=== PATIENT | male | born 1975 | race Caucasian/White ===

== ENCOUNTER 2017-09-26 15:59 | Emergency (ER) | payer MEDICAID ==
[~2017-09-26] VITALS: Ht 165.1 cm; Wt 73.0 kg
[2017-09-26] MEDS ORDERED: SODIUM CHLORIDE 0.9% 1,000 ML IV ONE (17:01)
[2017-09-26 17:26] LABS: BASOPHILS % 2.4 % (0.0-2.0); EOSINOPHILS % 3.8 % (0.0-5.0); HEMATOCRIT. 36.3 % (42.0-52.0); LYMPHOCYTES % 32.4 % (20.0-50.0); MEAN CORPUSCULAR HEMOGLOBIN 36.4 pg (28.0-32.0); MEAN CORPUSCULAR VOLUME 101.9 fL (80.0-94.0); MEAN PLATELET VOLUME 6.5 fl (7.4-10.4); MONOCYTES % 7.5 % (2.0-8.0); NEUTROPHILS % 53.9 % (40.0-76.0); PLATELET 149 x1000/uL (130-400); RED BLOOD CELL COUNT 3.56 mill/uL (4.7-6.1); RED CELL DISTRIBUTION WIDTH 14.4 % (11.6-14.6)
[2017-09-26] MEDS ORDERED: ONDANSETRON HCL 4MG/2ML VIAL IV ONE (17:30)
[2017-09-26 17:31] LABS: CHLORIDE 108 mEq/L (98-107); INR 1.1
[2017-09-26 17:52] LABS: ETHANOL BLOOD 289 mg/dL
[2017-09-26 18:08] VITALS: BP 125/84
[2017-09-26 18:43] LABS: CLARITY URINE CLEAR (CLEAR); COLOR URINE YELLOW (YELLOW); KETONES URINE TRACE (NEGATIVE); LEUKOCYTE ESTERASE URINE NEGATIVE (NEGATIVE); NITRITE URINE NEGATIVE (NEGATIVE); OCCULT BLOOD URINE NEGATIVE (NEGATIVE); PROTEIN URINE NEGATIVE (NEGATIVE); SPECIFIC GRAVITY URINE 1.016 (1.005-1.030)
== END 2017-09-26 18:32 | disposition left against medical advice (07) ==
LOC: ER 16:18
DX: F10.229 Alcohol dependence with intoxication, unspecified (principal); Y90.8 Blood alcohol level of 240 mg/100 ml or more; G92 Toxic encephalopathy; R10.9 Unspecified abdominal pain; D64.9 Anemia, unspecified; I10 Essential (primary) hypertension; E11.9 Type 2 diabetes mellitus without complications; F12.90 Cannabis use, unspecified, uncomplicated; Z85.028 Personal history of other malignant neoplasm of stomach; Z86.59 Personal history of other mental and behavioral disorders; Z87.891 Personal history of nicotine dependence
CPT/HCPCS: 36415; 80053; 81003; 83690; 85025; 85610; 96361; 96374; 99284; G0482; J2405; J7030

== ENCOUNTER 2018-11-22 22:53 | Inpatient (IN) | payer MEDICAID ==
[~2018-11-22] VITALS: Ht 172.7 cm; Wt 78.5 kg
[2018-11-23] MEDS ORDERED: SODIUM CHLORIDE 0.9% 1,000 ML IV ONE ×2 (01:39→15:05)
[2018-11-23 02:00] LABS: BASOPHILS % 0.6 % (0.0-2.0); EOSINOPHILS % 1.6 % (0.0-5.0); HEMATOCRIT. 32.1 % (42.0-52.0); HEMOGLOBIN. 10.8 g/dL (14.0-18.0); LYMPHOCYTES % 15.9 % (20.0-50.0); MEAN CORPUSCULAR HEMOGLOBIN 34.1 pg (28.0-32.0); MEAN CORPUSCULAR VOLUME 101.1 fL (80.0-94.0); MEAN PLATELET VOLUME 6.5 fl (7.4-10.4); MONOCYTES % 6.9 % (2.0-8.0); PLATELET 199 x1000/uL (130-400); RED BLOOD CELL COUNT 3.18 mill/uL (4.7-6.1); RED CELL DISTRIBUTION WIDTH 15.1 % (11.6-14.6)
[2018-11-23 02:02] LABS: CLARITY URINE CLEAR (CLEAR); COLOR URINE YELLOW (YELLOW); KETONES URINE NEGATIVE (NEGATIVE); LEUKOCYTE ESTERASE URINE NEGATIVE (NEGATIVE); NITRITE URINE NEGATIVE (NEGATIVE); OCCULT BLOOD URINE NEGATIVE (NEGATIVE); PROTEIN URINE NEGATIVE (NEGATIVE); SPECIFIC GRAVITY URINE 1.015 (1.005-1.030)
[2018-11-23 02:08] LABS: CHLORIDE 106 mEq/L (98-107)
[2018-11-23 02:12] LABS: ETHANOL BLOOD 255 mg/dL
[2018-11-23 02:15] LABS: *AMPHETAMINES SCREEN URINE NEGATIVE (NEGATIVE); *BARBITURATES SCREEN URINE NEGATIVE (NEGATIVE); *BENZODIAZEPINES SCREEN URINE NEGATIVE (NEGATIVE); *COCAINE SCREEN URINE NEGATIVE (NEGATIVE); CANNABINOID URINE SCREEN NEGATIVE (NEGATIVE); PHENCYCLIDINE URINE SCREEN NEGATIVE (NEGATIVE)
[2018-11-23 02:16] LABS: METHADONE URINE SCREEN NEGATIVE (NEGATIVE); OPIATES URINE SCREEN NEGATIVE (NEGATIVE)
[2018-11-23] MEDS ORDERED: LORAZEPAM 2MG/ML CPJ IV ONE (15:15)
[2018-11-23] MEDS ORDERED: LEVETIRACETAM 1000MG/100ML 100 ML IV ONE (15:15)
[2018-11-23 15:58] LABS: CHLORIDE 101 mEq/L (98-107)
[2018-11-23 16:01] LABS: ETHANOL BLOOD < 10 mg/dL
[2018-11-23 16:04] LABS: HEMATOCRIT. 40.6 % (42.0-52.0); HEMOGLOBIN. 13.8 g/dL (14.0-18.0); MEAN CORPUSCULAR HEMOGLOBIN 34.4 pg (28.0-32.0); MEAN CORPUSCULAR VOLUME 101.8 fL (80.0-94.0); MEAN PLATELET VOLUME 8.1 fl (7.4-10.4); PLATELET 100 x1000/uL (130-400); RED BLOOD CELL COUNT 3.99 mill/uL (4.7-6.1)
[2018-11-23 16:06] LABS: CREATINE KINASE 205 IU/L (39-308)
[2018-11-23] MEDS ORDERED: CHLORDIAZEPOXIDE 25MG CAPSULE PO ONE (17:00)
[2018-11-23] MEDS ORDERED: LEVETIRACETAM 500MG PREMIX 100 ML IV ONE (17:00)
[2018-11-23 19:25] LABS: PLATELET ESTIMATE DECREASED
[2018-11-24] MEDS ORDERED: LORAZEPAM 2MG/ML CPJ IV ONE (08:45)
[2018-11-24 09:48] VITALS: BP 143/98
[2018-11-24 10:42] VITALS: BP 143/98
[2018-11-24] MEDS ORDERED: LORAZEPAM 2MG/ML CPJ IV PRN (10:45)
[2018-11-24] MEDS ORDERED: ONDANSETRON HCL 4MG/2ML INJ IV PRN (10:45)
[2018-11-24] MEDS ORDERED: DEXTROSE 50% WATER 50ML SYRINGE IV PRN (11:00)
[2018-11-24] MEDS: DEXT 5%/0.45% NACL 1000ML 1,000 ML IV SCH (11:56)
[2018-11-24 12:00] VITALS: BP 143/96
[2018-11-24] MEDS: MULTIVITAMINS,THER W-MINERALS TABLET PO SCH (12:04)
[2018-11-24] MEDS: THIAMINE HCL 100MG TABLET PO SCH (12:04)
[2018-11-24] MEDS: ACETAMINOPHEN 325MG TABLET PO PRN (12:05)
[2018-11-24] MEDS: FAMOTIDINE 20MG/2ML VIAL IV SCH (12:05)
[2018-11-24] MEDS: BLOOD SUGAR DIAGNOSTIC STRIP TEST SCH ×3 (12:28→21:00)
[2018-11-24] MEDS: INSULIN LISPRO 100 UNITS/ML SUBCUT SCH ×3 (12:28→21:00)
[2018-11-24] MEDS: CHLORDIAZEPOXIDE 25MG CAPSULE PO SCH ×2 (14:50→21:24)
[2018-11-24 16:00] VITALS: BP 139/78
[2018-11-24 20:00] VITALS: BP 149/108
[2018-11-25] VITALS: BP 137/103
[2018-11-25 04:00] VITALS: BP 148/105
[2018-11-25 06:45] LABS: BASOPHILS % 0.4 % (0.0-2.0); EOSINOPHILS % 4.1 % (0.0-5.0); HEMATOCRIT. 34.2 % (42.0-52.0); HEMOGLOBIN. 11.9 g/dL (14.0-18.0); LYMPHOCYTES % 17.7 % (20.0-50.0); MEAN CORPUSCULAR HEMOGLOBIN 34.3 pg (28.0-32.0); MEAN CORPUSCULAR VOLUME 98.7 fL (80.0-94.0); MEAN PLATELET VOLUME 7.3 fl (7.4-10.4); MONOCYTES % 8.8 % (2.0-8.0); PLATELET 149 x1000/uL (130-400); RED BLOOD CELL COUNT 3.46 mill/uL (4.7-6.1); RED CELL DISTRIBUTION WIDTH 14.3 % (11.6-14.6)
[2018-11-25] MEDS: CHLORDIAZEPOXIDE 25MG CAPSULE PO SCH ×3 (06:59→21:10)
[2018-11-25 07:07] LABS: CHLORIDE 104 mEq/L (98-107)
[2018-11-25] MEDS: BLOOD SUGAR DIAGNOSTIC STRIP TEST SCH ×4 (07:13→20:31)
[2018-11-25] MEDS: INSULIN LISPRO 100 UNITS/ML SUBCUT SCH ×4 (07:14→20:32)
[2018-11-25 08:00] VITALS: BP 154/104
[2018-11-25] MEDS ORDERED: CLONIDINE 0.1MG TABLET PO PRN (08:00)
[2018-11-25] MEDS ORDERED: POTASSIUM CHLORIDE 20MEQ TABLET SR PO NR (08:00)
[2018-11-25] MEDS: FOLIC ACID 1MG TABLET PO SCH (08:53)
[2018-11-25] MEDS: MULTIVITAMINS,THER W-MINERALS TABLET PO SCH (08:53)
[2018-11-25] MEDS: THIAMINE HCL 100MG TABLET PO SCH (08:53)
[2018-11-25] MEDS: FAMOTIDINE 20MG/2ML VIAL IV SCH (08:54)
[2018-11-25] MEDS: DEXT 5%/0.45% NACL 1000ML 1,000 ML IV SCH ×2 (09:12→23:11)
[2018-11-25 12:00] VITALS: BP 134/93
[2018-11-25] MEDS: ACETAMINOPHEN 325MG TABLET PO PRN (15:05)
[2018-11-25 16:00] VITALS: BP 115/86
[2018-11-25 20:00] VITALS: BP 138/93
[2018-11-25] MEDS: TRAMADOL 50MG TABLET PO PRN (20:42)
[2018-11-26] VITALS: BP 129/94
[2018-11-26] MEDS: TRAMADOL 50MG TABLET PO PRN ×2 (03:54→21:23)
[2018-11-26 04:00] VITALS: BP 148/99
[2018-11-26] MEDS: CHLORDIAZEPOXIDE 25MG CAPSULE PO SCH ×3 (05:09→21:24)
[2018-11-26] MEDS: BLOOD SUGAR DIAGNOSTIC STRIP TEST SCH ×4 (06:22→21:49)
[2018-11-26] MEDS: INSULIN LISPRO 100 UNITS/ML SUBCUT SCH ×4 (06:23→21:00)
[2018-11-26 08:00] VITALS: BP 147/102
[2018-11-26] MEDS: THIAMINE HCL 100MG TABLET PO SCH (08:06)
[2018-11-26] MEDS: MULTIVITAMINS,THER W-MINERALS TABLET PO SCH (08:06)
[2018-11-26] MEDS: FOLIC ACID 1MG TABLET PO SCH (08:06)
[2018-11-26] MEDS: FAMOTIDINE 20MG/2ML VIAL IV SCH (08:07)
[2018-11-26] MEDS: ACETAMINOPHEN 325MG TABLET PO PRN (08:07)
[2018-11-26 12:00] VITALS: BP 140/96
[2018-11-26 16:00] VITALS: BP 154/98
[2018-11-26] MEDS: DEXT 5%/0.45% NACL 1000ML 1,000 ML IV SCH (16:17)
[2018-11-26 20:00] VITALS: BP 138/91
[2018-11-27] VITALS: BP 141/90
[2018-11-27 04:00] VITALS: BP 145/96
[2018-11-27] MEDS: CHLORDIAZEPOXIDE 25MG CAPSULE PO SCH ×3 (06:33→21:47)
[2018-11-27] MEDS: BLOOD SUGAR DIAGNOSTIC STRIP TEST SCH ×4 (06:36→21:53)
[2018-11-27] MEDS: DEXT 5%/0.45% NACL 1000ML 1,000 ML IV SCH ×2 (06:51→17:50)
[2018-11-27] MEDS: INSULIN LISPRO 100 UNITS/ML SUBCUT SCH ×4 (07:50→21:00)
[2018-11-27] MEDS: FOLIC ACID 1MG TABLET PO SCH (08:50)
[2018-11-27] MEDS: MULTIVITAMINS,THER W-MINERALS TABLET PO SCH (08:50)
[2018-11-27] MEDS: FAMOTIDINE 20MG/2ML VIAL IV SCH (08:50)
[2018-11-27] MEDS: THIAMINE HCL 100MG TABLET PO SCH (08:50)
[2018-11-27] MEDS: ACETAMINOPHEN 325MG TABLET PO PRN ×2 (08:51→14:21)
[2018-11-27 11:43] VITALS: BP 135/84
[2018-11-27 16:00] VITALS: BP 118/77
[2018-11-27 19:53] VITALS: BP 144/99
[2018-11-27] MEDS: TRAMADOL 50MG TABLET PO PRN (20:18)
[2018-11-28 00:04] VITALS: BP 134/98
[2018-11-28 04:00] VITALS: BP 139/92
[2018-11-28] MEDS: CHLORDIAZEPOXIDE 25MG CAPSULE PO SCH ×2 (06:37→14:27)
[2018-11-28] MEDS: BLOOD SUGAR DIAGNOSTIC STRIP TEST SCH ×3 (06:39→17:28)
[2018-11-28] MEDS: INSULIN LISPRO 100 UNITS/ML SUBCUT SCH ×2 (07:06→12:30)
[2018-11-28 08:00] VITALS: BP 129/97
[2018-11-28] MEDS: FOLIC ACID 1MG TABLET PO SCH (08:57)
[2018-11-28] MEDS: FAMOTIDINE 20MG/2ML VIAL IV SCH (08:57)
[2018-11-28] MEDS: DEXT 5%/0.45% NACL 1000ML 1,000 ML IV SCH (08:57)
[2018-11-28] MEDS: MULTIVITAMINS,THER W-MINERALS TABLET PO SCH (08:57)
[2018-11-28] MEDS: THIAMINE HCL 100MG TABLET PO SCH (08:58)
[2018-11-28 12:00] VITALS: BP 128/88
[2018-11-28 15:52] VITALS: BP 130/88
[2018-11-28 16:35] VITALS: BP 130/88
[2018-11-28] MEDS: TRAMADOL 50MG TABLET PO PRN (16:35)
== END 2018-11-28 17:30 | disposition home or self-care (01) | DRG 775 ==
LOC: ER 22:53 → 6WST 11-23 17:01 → EDBEDREQ 11-23 17:14 → ENRESERV 11-24 06:55
PROVIDERS: ADMIT Hospitalist; ATTEND Hospitalist
DX: F10.129 Alcohol abuse with intoxication, unspecified (principal); R45.851 Suicidal ideations; E11.9 Type 2 diabetes mellitus without complications; I10 Essential (primary) hypertension; Y90.8 Blood alcohol level of 240 mg/100 ml or more
CPT/HCPCS: 36415; 73060; 82962; 96365; 96366; 96375; 97116; 97162; 97530; 99284; C1893; J1815; J1953; J2060; J3490; J7030

== ENCOUNTER 2019-01-25 16:03 | Emergency (ER) | payer MEDICAID ==
[~2019-01-25] VITALS: Ht 172.7 cm; Wt 75.0 kg
[2019-01-25 16:13] VITALS: BP 148/92
== END 2019-01-25 20:20 | disposition left against medical advice (07) ==
LOC: ER 16:03
DX: R10.9 Unspecified abdominal pain (principal); Z53.21 Procedure and treatment not carried out due to patient leaving prior to being seen by health care provider

== ENCOUNTER 2019-07-15 22:51 | Emergency (ER) | payer MEDICAID ==
[~2019-07-15] VITALS: Ht 167.6 cm; Wt 69.0 kg
[2019-07-15 22:53] VITALS: BP 150/90
== END 2019-07-16 01:48 | disposition left against medical advice (07) ==
LOC: ER 22:51
DX: R10.9 Unspecified abdominal pain (principal); Z53.21 Procedure and treatment not carried out due to patient leaving prior to being seen by health care provider

== ENCOUNTER 2019-07-16 02:10 | Emergency (ER) | payer MEDICAID ==
[~2019-07-16] VITALS: Ht 170.2 cm; Wt 75.0 kg
[2019-07-16] MEDS ORDERED: SODIUM CHLORIDE 0.9% 1,000 ML IV ONE (03:00)
[2019-07-16 03:40] LABS: CLARITY URINE CLEAR (CLEAR); COLOR URINE YELLOW (YELLOW); KETONES URINE NEGATIVE (NEGATIVE); LEUKOCYTE ESTERASE URINE NEGATIVE (NEGATIVE); NITRITE URINE NEGATIVE (NEGATIVE); OCCULT BLOOD URINE NEGATIVE (NEGATIVE); PROTEIN URINE 2+ (NEGATIVE); SPECIFIC GRAVITY URINE 1.021 (1.005-1.030); UROBILINOGEN URINE 0.2 E.U./dL (0.2-1.0)
[2019-07-16 03:53] LABS: *AMPHETAMINES SCREEN URINE NEGATIVE (NEGATIVE); *BARBITURATES SCREEN URINE NEGATIVE (NEGATIVE); *BENZODIAZEPINES SCREEN URINE PRESUMTIVE POSITIVE (NEGATIVE); *COCAINE SCREEN URINE NEGATIVE (NEGATIVE); METHADONE URINE SCREEN NEGATIVE (NEGATIVE); OPIATES URINE SCREEN NEGATIVE (NEGATIVE)
[2019-07-16 03:54] LABS: CANNABINOID URINE SCREEN NEGATIVE (NEGATIVE); PHENCYCLIDINE URINE SCREEN NEGATIVE (NEGATIVE)
[2019-07-16 04:37] LABS: BASOPHILS % 0.6 % (0.0-2.0); HEMATOCRIT. 37.7 % (42.0-52.0); HEMOGLOBIN. 12.7 g/dL (14.0-18.0); LYMPHOCYTES % 30.3 % (20.0-50.0); MEAN CORPUSCULAR HEMOGLOBIN 32.8 pg (28.0-32.0); MEAN CORPUSCULAR VOLUME 97.5 fL (80.0-94.0); MEAN PLATELET VOLUME 6.6 fl (7.4-10.4); MONOCYTES % 7.5 % (2.0-8.0); NEUTROPHILS % 58.6 % (40.0-76.0); PLATELET 109 x1000/uL (130-400); RED BLOOD CELL COUNT 3.87 mill/uL (4.7-6.1); RED CELL DISTRIBUTION WIDTH 16.9 % (11.6-14.6)
[2019-07-16 04:39] LABS: CHLORIDE 109 mEq/L (98-107)
[2019-07-16 04:43] LABS: ETHANOL BLOOD 259 mg/dL
[2019-07-16 11:30] VITALS: BP 117/84
== END 2019-07-16 11:58 | disposition home or self-care (01) ==
LOC: ER 02:10
DX: F10.129 Alcohol abuse with intoxication, unspecified (principal); Y90.0 Blood alcohol level of less than 20 mg/100 ml; S09.8XXA Other specified injuries of head, initial encounter; X58.XXXA Exposure to other specified factors, initial encounter; Y93.89 Activity, other specified; Y92.89 Other specified places as the place of occurrence of the external cause; Y99.8 Other external cause status; I10 Essential (primary) hypertension; F12.10 Cannabis abuse, uncomplicated
CPT/HCPCS: 36415; 70450; 80053; 80305; 80320; 81003; 83690; 85025; 85610; 99284; J7030; Z7610; G0480

== ENCOUNTER 2020-06-19 09:12 | Inpatient (IN) | payer MEDICAID ==
[~2020-06-19] VITALS: Ht 170.2 cm; Wt 71.2 kg
[2020-06-19] MEDS: CHLORDIAZEPOXIDE 25MG CAPSULE PO SCH
[2020-06-19] MEDS: METOPROLOL TARTRATE 50MG TABLET PO SCH
[2020-06-19] MEDS: LEVETIRACETAM 500MG TABLET PO SCH
[2020-06-19] MEDS ORDERED: LORAZEPAM 2MG/ML CPJ IM STA (09:19)
[2020-06-19 10:21] LABS: CHLORIDE 104 mEq/L (98-107)
[2020-06-19 10:22] LABS: HEMATOCRIT. 40.7 % (42.0-52.0); HEMOGLOBIN. 13.5 g/dL (14.0-18.0); MEAN CORPUSCULAR HEMOGLOBIN 32.7 pg (28.0-32.0); MEAN CORPUSCULAR VOLUME 98.6 fL (80.0-94.0); MEAN PLATELET VOLUME 7.3 fl (7.4-10.4); PLATELET 100 x1000/uL (130-400); RED BLOOD CELL COUNT 4.12 mill/uL (4.7-6.1); RED CELL DISTRIBUTION WIDTH 16.8 % (11.6-14.6)
[2020-06-19 10:25] LABS: ETHANOL BLOOD < 10 mg/dL
[2020-06-19 10:42] LABS: CARBAMAZEPINE < 0.5 ug/mL (4-12); PHENOBARBITAL < 2.1 ug/mL (15.0-40.0); VALPROIC ACID < 3.0 ug/mL (50-100)
[2020-06-19] MEDS ORDERED: LEVETIRACETAM 1000MG PREMIX 100 ML IV ONE (11:00)
[2020-06-19 11:32] LABS: CLARITY URINE CLEAR (CLEAR); COLOR URINE YELLOW (YELLOW); KETONES URINE TRACE (NEGATIVE); LEUKOCYTE ESTERASE URINE NEGATIVE (NEGATIVE); NITRITE URINE NEGATIVE (NEGATIVE); OCCULT BLOOD URINE 2+ (NEGATIVE); PH URINE 5.5 (4.5-8.0); PROTEIN URINE 2+ (NEGATIVE); SPECIFIC GRAVITY URINE 1.015 (1.005-1.030); UROBILINOGEN URINE 0.2 E.U./dL (0.2-1.0)
[2020-06-19 11:50] LABS: PLATELET ESTIMATE SLIGHTLY DECREASED
[2020-06-19 11:52] LABS: *BARBITURATES SCREEN URINE NEGATIVE (NEGATIVE); *BENZODIAZEPINES SCREEN URINE NEGATIVE (NEGATIVE); *COCAINE SCREEN URINE NEGATIVE (NEGATIVE)
[2020-06-19 11:53] LABS: *AMPHETAMINES SCREEN URINE NEGATIVE (NEGATIVE); CANNABINOID URINE SCREEN NEGATIVE (NEGATIVE); METHADONE URINE SCREEN NEGATIVE (NEGATIVE); OPIATES URINE SCREEN NEGATIVE (NEGATIVE); PHENCYCLIDINE URINE SCREEN NEGATIVE (NEGATIVE)
[2020-06-19] MEDS ORDERED: HYDRALAZINE 20MG/ML VIAL IV ONE (12:30)
[2020-06-19] MEDS ORDERED: LORAZEPAM 2MG/ML CPJ IV PRN (14:30)
[2020-06-19] MEDS ORDERED: ONDANSETRON HCL 4MG/2ML INJ IV PRN (14:45)
[2020-06-19] MEDS: CLONIDINE 0.1MG TABLET PO PRN ×2 (17:14→17:15)
[2020-06-19] MEDS ORDERED: FOLIC ACID 1 MG, THIAMINE HCL 100 MG, MVI, ADULT NO.1 10 ML in DEXTROSE 5% WATER 1,000 ML IV ONE ×4 (19:00)
[2020-06-19] MEDS: AMLODIPINE 10MG TABLET PO SCH (19:41)
[2020-06-20 06:49] LABS: BASOPHILS % 0.5 % (0.0-2.0); EOSINOPHILS % 2.6 % (0.0-5.0); HEMATOCRIT. 40.3 % (42.0-52.0); HEMOGLOBIN. 13.6 g/dL (14.0-18.0); LYMPHOCYTES % 11.5 % (20.0-50.0); MEAN CORPUSCULAR HEMOGLOBIN 32.4 pg (28.0-32.0); MEAN PLATELET VOLUME 7.3 fl (7.4-10.4); MONOCYTES % 8.3 % (2.0-8.0); NEUTROPHILS % 77.1 % (40.0-76.0); PLATELET 109 x1000/uL (130-400); RED BLOOD CELL COUNT 4.19 mill/uL (4.7-6.1); RED CELL DISTRIBUTION WIDTH 16.9 % (11.6-14.6)
[2020-06-20 06:52] LABS: CHLORIDE 102 mEq/L (98-107)
[2020-06-20] MEDS: METOPROLOL TARTRATE 50MG TABLET PO SCH ×2 (09:54→21:00)
[2020-06-20] MEDS: AMLODIPINE 10MG TABLET PO SCH (09:55)
[2020-06-20] MEDS: CHLORDIAZEPOXIDE 25MG CAPSULE PO SCH ×3 (09:55→21:35)
[2020-06-20] MEDS: LEVETIRACETAM 500MG TABLET PO SCH ×2 (09:56→21:35)
[2020-06-20] MEDS ORDERED: POTASSIUM CHLORIDE 20MEQ TABLET SR PO NR (10:00)
[2020-06-20] MEDS ORDERED: HALOPERIDOL LACTATE 5MG/ML VIAL IM SCH (23:15)
[2020-06-20] MEDS: LORAZEPAM 2MG/ML CPJ IV PRN (23:52)
[2020-06-21] MEDS: CHLORDIAZEPOXIDE 25MG CAPSULE PO SCH ×3 (06:00→21:16)
[2020-06-21 12:30] VITALS: BP_SYST 124; BP_SYST 152; BP_DIAS 90
[2020-06-21] MEDS: METOPROLOL TARTRATE 50MG TABLET PO SCH ×2 (13:25→20:37)
[2020-06-21] MEDS: LEVETIRACETAM 500MG TABLET PO SCH ×2 (13:26→20:37)
[2020-06-21] MEDS: AMLODIPINE 10MG TABLET PO SCH (13:27)
[2020-06-21 16:00] VITALS: BP 116/86
[2020-06-21 16:05] LABS: BASOPHILS % 0.3 % (0.0-2.0); EOSINOPHILS % 2.3 % (0.0-5.0); HEMATOCRIT. 40.3 % (42.0-52.0); HEMOGLOBIN. 13.6 g/dL (14.0-18.0); LYMPHOCYTES % 8.6 % (20.0-50.0); MEAN CORPUSCULAR HEMOGLOBIN 32.8 pg (28.0-32.0); MEAN CORPUSCULAR VOLUME 97.6 fL (80.0-94.0); MEAN PLATELET VOLUME 7.6 fl (7.4-10.4); MONOCYTES % 6.2 % (2.0-8.0); NEUTROPHILS % 82.6 % (40.0-76.0); PLATELET 121 x1000/uL (130-400); RED BLOOD CELL COUNT 4.13 mill/uL (4.7-6.1); RED CELL DISTRIBUTION WIDTH 16.5 % (11.6-14.6)
[2020-06-21 16:27] LABS: CHLORIDE 106 mEq/L (98-107)
[2020-06-21] MEDS: ACETAMINOPHEN 325MG TABLET PO PRN (18:19)
[2020-06-21] MEDS ORDERED: LOPHC2 PO (18:38)
[2020-06-21] MEDS ORDERED: AMLO10TA4 MT (18:38)
[2020-06-21] MEDS ORDERED: KEPP500 PO (18:38)
[2020-06-21] MEDS: LORAZEPAM 2MG/ML CPJ IV PRN (20:37)
[2020-06-21 23:19] VITALS: BP 119/80
[2020-06-22] VITALS (7 sets, daily range): BP systolic 95–167; BP diastolic 61–93
[2020-06-22] MEDS: METOPROLOL TARTRATE 50MG TABLET PO SCH ×2 (08:45→20:36)
[2020-06-22] MEDS: CHLORDIAZEPOXIDE 25MG CAPSULE PO SCH ×3 (08:45→22:57)
[2020-06-22] MEDS: AMLODIPINE 10MG TABLET PO SCH (08:45)
[2020-06-22] MEDS: LEVETIRACETAM 500MG TABLET PO SCH ×2 (08:45→20:37)
[2020-06-22] MEDS ORDERED: THIA100T72 MT (12:53)
[2020-06-22] MEDS: THIAMINE HCL 100MG TABLET PO SCH (20:37)
[2020-06-22] MEDS: ACETAMINOPHEN 325MG TABLET PO PRN (20:37)
[2020-06-23] VITALS: BP 133/97
[2020-06-23 04:00] VITALS: BP 96/61
[2020-06-23] MEDS: CHLORDIAZEPOXIDE 25MG CAPSULE PO SCH ×3 (07:07→22:20)
[2020-06-23 07:30] VITALS: BP 132/98
[2020-06-23] MEDS: LEVETIRACETAM 500MG TABLET PO SCH ×2 (09:36→22:19)
[2020-06-23] MEDS: AMLODIPINE 10MG TABLET PO SCH (09:36)
[2020-06-23] MEDS: METOPROLOL TARTRATE 50MG TABLET PO SCH ×2 (09:36→22:20)
[2020-06-23] MEDS: THIAMINE HCL 100MG TABLET PO SCH (09:37)
[2020-06-23 11:45] VITALS: BP 92/58
[2020-06-23 18:07] VITALS: BP 107/61
[2020-06-24] VITALS: BP 116/77
[2020-06-24 04:00] VITALS: BP 107/68
[2020-06-24] MEDS: CHLORDIAZEPOXIDE 25MG CAPSULE PO SCH ×3 (06:07→21:49)
[2020-06-24 08:00] VITALS: BP 90/57
[2020-06-24] MEDS: METOPROLOL TARTRATE 50MG TABLET PO SCH ×2 (08:54→21:49)
[2020-06-24] MEDS: AMLODIPINE 10MG TABLET PO SCH (08:54)
[2020-06-24] MEDS: THIAMINE HCL 100MG TABLET PO SCH (08:55)
[2020-06-24] MEDS: LEVETIRACETAM 500MG TABLET PO SCH ×2 (08:55→21:57)
[2020-06-24 12:00] VITALS: BP 95/55
[2020-06-24 16:18] VITALS: BP 113/80
[2020-06-24 20:00] VITALS: BP 140/82
[2020-06-24] MEDS: LORAZEPAM 2MG/ML CPJ IV PRN (22:56)
[2020-06-25] VITALS: BP 119/82
[2020-06-25 04:00] VITALS: BP 106/63
[2020-06-25 08:00] VITALS: BP 106/80
[2020-06-25] MEDS: AMLODIPINE 10MG TABLET PO SCH (09:00)
[2020-06-25] MEDS: METOPROLOL TARTRATE 50MG TABLET PO SCH ×2 (09:00→21:32)
[2020-06-25] MEDS: LEVETIRACETAM 500MG TABLET PO SCH ×2 (09:51→21:32)
[2020-06-25] MEDS: THIAMINE HCL 100MG TABLET PO SCH (09:51)
[2020-06-25] MEDS: LORAZEPAM 2MG/ML CPJ IV PRN ×3 (09:58→21:32)
[2020-06-25 12:00] VITALS: BP 102/66
[2020-06-25 16:00] VITALS: BP 98/50
[2020-06-25] MEDS: ACETAMINOPHEN 325MG TABLET PO PRN (21:31)
[2020-06-26 08:00] VITALS: BP 102/75
[2020-06-26] MEDS: AMLODIPINE 10MG TABLET PO SCH (09:00)
[2020-06-26] MEDS: METOPROLOL TARTRATE 50MG TABLET PO SCH (09:00)
[2020-06-26] MEDS: THIAMINE HCL 100MG TABLET PO SCH (09:48)
[2020-06-26] MEDS: LEVETIRACETAM 500MG TABLET PO SCH (09:48)
[2020-06-26] MEDS: ACETAMINOPHEN 325MG TABLET PO PRN ×2 (13:24→13:25)
== END 2020-06-26 15:43 | disposition left against medical advice (07) | DRG 53 ==
LOC: ER 09:46 → MICUSO 23:51 → 6WST 06-21 10:15 → 6EST 06-23 22:06
PROVIDERS: ADMIT Internal Medicine; ATTEND Internal Medicine
DX: G40.909 Epilepsy, unspecified, not intractable, without status epilepticus (principal); F10.239 Alcohol dependence with withdrawal, unspecified; E87.1 Hypo-osmolality and hyponatremia; E11.9 Type 2 diabetes mellitus without complications; D69.6 Thrombocytopenia, unspecified; Z53.29 Procedure and treatment not carried out because of patient's decision for other reasons; I10 Essential (primary) hypertension; Z85.89 Personal history of malignant neoplasm of other organs and systems; Z71.41 Alcohol abuse counseling and surveillance of alcoholic
CPT/HCPCS: 36415; 80048; 80053; 80156; 80165; 80184; 80185; 80305; 80320; 81003; 82962; 84145; 85025; 93005; 96372; 99285; J0360; J1630; J1953; J2060; J2405; J3411; J3490; J7070; G0480